=== PATIENT | male | born 1990 | race Two or more races ===

== ENCOUNTER 2024-12-15 09:32 | Emergency (ER) | payer MEDICAID, SELFPAY ==
--- NOTE | 2024-12-15 10:02 | XR_ITS ---
Examination: Shoulder,left, 3 views Technique: Shoulder AP internal rotation, AP external rotation, Y view shoulder, 3 views Exam date and time :December 15, 2024 1023 hours INDICATIONS: Left shoulder pain beginning 3 weeks ago. FINDINGS: No shoulder fracture or dislocation Mild narrowing glenohumeral joint IMPRESSION: Mild narrowing glenohumeral joint No calcific tendinitis
[2024-12-15 10:12] VITALS: BP 124/88; PULSE 66; RESP 16; TEMP 37.1; O2SAT 98; BMI 24.3
--- NOTE | 2024-12-15 11:14 | PD.EDADULT ---
ED General RME/HPI General Chief complaint: General Adult/Misc Complain Stated complaint: BUMP ON LEFT SHOULDER, PAINFUL, NECK PAIN Time Seen by Provider: 12/15/24 09:34 Arrival date/time: 12/15/24 09:32 34-year-old male presents emergency department today stating that he noticed he had a lump on his left shoulder patient reports no other bumps or lumps ongoing for the last couple of months patient reports no fever nausea vomiting or weight loss no other symptoms Limitations: no limitations Related Data Previous Rx's ?Medication ?Instructions ?Recorded ibuprofen 800 mg tablet 800 mg PO TID PRN pain #30 tabs 11/28/21 tramadol 50 mg tablet 50 mg PO Q8H PRN pain #10 tabs 03/02/22 cephalexin 500 mg capsule 500 mg PO Q12H #20 caps 06/09/22 sulfamethoxazole 800 1 tab PO BID #14 tabs 06/09/22 mg-trimethoprim 160 mg tablet (Bactrim DS) tramadol 37.5 mg-acetaminophen 325 1 tab PO TID PRN pain #15 tabs 06/11/22 mg tablet (Ultracet) Allergies Allergy/AdvReac Type Severity Reaction Status Date / Time hydrocortisone Allergy Severe Swelling Verified 12/15/24 09:33 of Lip/Tongue/Throat Review of Systems Review of Systems Systems Reviewed: All systems reviewed, normal except as documented Constitutional Constitutional: Reports system reviewed and no additional complaints, except as documented, Denies fever(s) and Denies headache(s) Eyes Eyes: Reports system reviewed and no additional complaints, except as documented and Denies blurry vision ENT Ears, Nose, Mouth, and Throat: Reports system reviewed and no additional complaints, except as documented, Denies headache(s), Denies nasal congestion and Denies nasal discharge Cardiovascular Cardiovascular: Reports system reviewed and no additional complaints, except as documented, Denies chest pain and Denies dyspnea Respiratory Respiratory: Reports system reviewed and no additional complaints, except as documented, Denies chest congestion, Denies cough and Denies dyspnea Gastrointestinal Gastrointestinal: Reports system reviewed and no additional complaints, except as documented and Denies abdominal pain Musculoskeletal Musculoskeletal: Reports system reviewed and no additional complaints, except as documented and Denies atrophy Integumentary/Breasts Skin/Breast: Reports system reviewed and no additional complaints, except as documented, Denies rash and Reports other (Lipoma left upper shoulder) Neurologic Neurologic: Reports system reviewed and no additional complaints, except as documented, Reports as per HPI and Denies headache(s) Past Medical History Past Medical History NEUROLOGIC: Negative Neurological Disorders CARDIAC: Negative Cardiac Disorders ED Exam General Limitations: Present no limitations General appearance: Present alert and in no apparent distress Head Head exam: Present atraumatic Eye Eye exam: Present normal appearance, PERRL and EOMI ENT ENT exam: Present normal exam, normal oropharynx and mucous membranes moist Neck Neck exam: Present normal inspection, full ROM and trachea midline Chest Chest inspection: Present normal inspection and symmetric chest wall rise Respiratory Respiratory exam: Present normal lung sounds bilaterally Cardiovascular Cardiovascular exam: Present regular rate, normal rhythm and normal heart sounds Abdominal Exam Abdominal exam: Present soft and normal bowel sounds Extremities Exam Extremities exam: Present normal inspection and full ROM Back Exam Back exam: Present normal inspection and full ROM Back 1 view image:  1. Lipoma Neurological Exam Neurological exam: Present alert, oriented X3 and CN II-XII intact Psychiatric Psychiatric exam: Present normal affect and normal mood Skin Skin exam: Present warm, dry, intact and normal color Course Quality Measures none Orders Category Date Time Status XR shoulder LT min 2V Stat Exams 12/15/24 10:02 Completed Vital Signs Vital signs: Vital Signs Temperature 98.8 F 12/15/24 10:12 Pulse Rate 66 12/15/24 10:12 Respiratory Rate 16 12/15/24 10:12 Blood Pressure 124/88 H 12/15/24 10:12 Pulse Oximetry (%) 98 12/15/24 10:12 Oxygen Delivery Method Room Air 12/15/24 10:12 O2 saturation 98% room air within normal limits MDM Patient data External records reviewed:: [facility] [place] previous records Clinical information provided by:: patient Social determinants that could affect healthcare access:: none Patient has the following chronic illnesses:: None How is presenting disease/condition affected by chronic disease/condition?: no chronic disease Evaluation data The following diagnostics were reviewed and interpreted by me:: other (specify) (N/A) Lab and/or radiology exams considered but not ordered:: Consider not ordered Interpretation Summary: N/A Medications Medications considered but not ordered:: No meds Medication administrations:: No meds Consultations Consultation(s) initiated? (list below): No Diagnosis Differential Diagnosis ED Complaint MDM: Lipoma, mass, shoulder pain Most likely diagnosis given after review of the tests above:: Lipoma left shoulder Admission Indicated Admission indicated?: not indicated Explain why admission is indicated or not indicated:: No criteria Admission Request Was there a request for admission?: No Disposition Plan Disposition Plan: Discharge Discharge Attestation Discharge Attestation: The patient and all family members were given an opportunity to ask questions and understood the discharge instructions. Discharge instructions specifically effects, indications for sooner follow up or return to the emergency department, and the expected course of current diagnosis. Patient condition: Stable Medical Decision Making MDM Narrative MDM Narrative: 34-year-old male presents emergency department today stating that he noticed he had a lump on his left shoulder patient reports no other bumps or lumps ongoing for the last couple of months patient reports no fever nausea vomiting or weight loss no other symptoms On exam patient appears have lipoma left shoulder/suprascapular region X-ray of the left shoulder obtained no acute emergent findings noted Explained the patient he should follow-up with his PCP and or get a referral to general surgeon for worsening symptoms return immediately Differential Diagnosis Differential Diagnosis: Lipoma, mass, shoulder pain Medical Records Medical records reviewed: Yes I reviewed the patient's medical records. Radiology Data Radiology results reviewed: Yes I reviewed the patient's radiology results. Discharge Plan Plan Patient Disposition: HOME (Self Care) Disposition Comment: Stable Prescriptions/Referrals Prescriptions/Med Rec: No Action ibuprofen 800 mg tablet 800 mg PO TID PRN (Reason: pain) Qty: 30 0RF tramadol 50 mg tablet 50 mg PO Q8H PRN (Reason: pain) Qty: 10 0RF sulfamethoxazole-trimethoprim [Bactrim DS] 800-160 mg tablet 1 tab PO BID Qty: 14 0RF cephalexin 500 mg capsule 500 mg PO Q12H Qty: 20 0RF tramadol-acetaminophen [Ultracet] 37.5-325 mg tablet 1 tab PO TID PRN (Reason: pain) Qty: 15 0RF Problem List Clinical Impression: Lipoma of left shoulder Patient/Caregiver Discharge Instructions Education Materials: ED Lipoma Additional Instructions: Please follow up with your primary care doctor in the next 24-48hrs for any worsening symptoms return here immediately Please request referral to surgeon Print Language: Liberian Stand Alone Forms: Samantha Award Info., Patient Portal Info Letter PA/MEDICAL STAFF PHYSICIAN Supervising Physician PA/LEELA Supervising Physician: Dr. Zimmerman
--- NOTE | 2024-12-15 12:01 | PC.NURSE ---
NO ANSWER WHEN CALLED FROM [facility]
== END 2024-12-15 12:27 | disposition home or self-care (01) ==
LOC: SERX 12:36
PROVIDERS: Emergency Provider Emergency Medicine; PCP Family Medicine
DX: D17.22 Benign lipomatous neoplasm of skin and subcutaneous tissue of left arm (principal)
CPT/HCPCS: 73030; 99283

== ENCOUNTER 2025-07-09 06:55 | Day surgery (SDC) | payer MEDICAID, SELFPAY ==
[2025-07-08 08:55] VITALS: BMI 25.0
[2025-07-08 10:55] LABS: Basophils # (Auto) 0.1 Thou/mm3 (0.0-0.2); Basophils % (Auto) 1 % (0-2.5); Eosinophils # (Auto) 0.1 Thou/mm3 (0.0-0.5); Eosinophils % (Auto) 1 % (0-10); Hematocrit 44.3 % (41.0-53.0); Hemoglobin 15.4 g/dL (13.5-16.0); Immature Granulocytes Auto 0.02 Thou/mm3 (0.00-0.00); Lymphocytes # (Auto) 1.9 Thou/mm3 (1.0-4.8); Lymphocytes % (Auto) 30 % (10-50); Mean Corpuscular HGB Conc 34.8 g/dl (31.0-37.0); Mean Corpuscular Hemoglobin 29.7 pg (25.0-35.0); Mean Corpuscular Volume 86 fL (80-100); Monocytes # (Auto) 0.4 Thou/mm3 (0.0-0.8); Monocytes % (Auto) 6 % (0-12); Neutrophils # (Auto) 3.9 Thou/mm3 (1.8-7.7); Neutrophils % (Auto) 62 % (37-80); Nucleated Red Blood Cell # 0.00 Thou/mm3 (0.00-0.00); Nucleated Red Blood Cell % 0 /100 WBC (0); Platelet Count 291 Thou/mm3 (140-440); RDW Standard Deviation 39.3 fL (35.1-43.9); Red Blood Count 5.18 Miln/mm3 (4.50-5.90); White Blood Count 6.3 Thou/mm3 (3.8-10.6)
[2025-07-08 11:04] LABS: Alanine Aminotransferase 22 U/L (10-49); Albumin, Serum 4.5 gm/dL (3.5-5.0); Albumin/Globulin Ratio 1.8 (1.2-2.2); Alkaline Phosphatase 47 U/L (46-116); Anion Gap 11 (7-16); Aspartate Amino Transferase 19 U/L (0-34); BUN/Creatinine Ratio 10 Ratio (12-20); Bilirubin,Total 1.1 mg/dL (0.3-1.2); Blood Urea Nitrogen 11 mg/dL (9-23); Calcium 10.1 mg/dL (8.3-10.6); Calcium (Corrected) 10.1 mg/dL (8.5-10.1); Carbon Dioxide 24.1 mMol/L (20.0-31.0); Chloride 107 mMol/L (98-107); Creatinine (Component) 1.1 mg/dL (0.6-1.3); Estimated Creatinine Clearance 91.9 mL/min (>60); Globulin 2.5 gm/dL (2.3-3.5); Glucose 112 mg/dL (74-106); Osmolality,Calculated 283 (275-295); Potassium 3.8 mMol/L (3.4-5.1); Sodium 142 mMol/L (136-145); Total Protein 7.0 gm/dL (5.7-8.2); eGFR > 60 See Note
[2025-07-08 11:17] LABS: INR 1.0 (0.9-1.3); Partial Thromboplastin Time 26.5 Seconds (22.0-36.0); Prothrombin Time 10.5 Seconds (9.0-12.2)
[2025-07-09] VITALS (7 sets, daily range): BP systolic 101–134; BP diastolic 60–92; PULSE 61–79; RESP 14–20; TEMP 36.7–37.1; O2SAT 96–99; BMI 25.0
--- NOTE | 2025-07-09 08:21 | SUR.PREOP ---
Patient expressed gratitude for prayer before their procedure.
--- NOTE | 2025-07-09 09:50 | SUR.PHASEII ---
[id number] Patient arrived to recovery resting comfortably in [facility], awake and alert, breathing unlabored, vital signs stable, denies pain, dressing intact; sutures, gauze, medipore tape, no bleeding noted, report received from Richard SCHROEDER and Marsha CHRIS
--- NOTE | 2025-07-09 09:54 | PD.SUROPNT ---
Date of Procedure 07/09/25 Pre Op Diagnosis Soft tissue mass back of the left shoulder Post Op Diagnosis Same Procedure Excision of the soft tissue mass back of the left shoulder Findings Patient was found to have a lobulated lipoma in the subcutaneous tissue which is firmly adherent to the fascia and other structures requiring dissection. Procedure Description Out the patient was brought to the operating room he was kept on right lateral position and the back of the left shoulder was washed with ChloraPrep solution and draped in a sterile manner. Timeout was performed. The mass was located right over the scapula and the shoulder muscles. Transverse incision was made parallel to the skin crease and using Mariusz retractors I dissected out the lobulated lipoma. This was firmly adherent to the underlying structures and required sharp dissection. Bleeding points were controlled with cautery. The subcu tissues was closed with 3-0 chromic on the skin by 4-0 Monocryl after injecting local anesthesia with half percent Marcaine. Dressing was applied with Adaptic and 4 x 4 gauze and patient tolerated procedure well. Anesthesia MAC Pathology / specimen Other (The excised mass) Estimated Blood Loss 10 Surgeon Mel Gonzalez MD Surgical Staff Operation Date: 07/09/25 09:45 Case Staff LITHOGRAPHIC STRIPPER: Pernell Jean RNrate clerk passenger: Elisabeth Valderrama
--- NOTE | 2025-07-09 10:41 | SUR.PHASEII ---
patient meets discharge criteria from recovery, awake and alert, breathing unlabored, vital signs stable, denies pain, dressing intact; no bleeding noted, eating and drinking; tolerating well, denies nausea, patient disconnected from the vital signs monitor and dressed in his clohting awaiting his ride
--- NOTE | 2025-07-09 11:18 | SUR.PHASEII ---
1110 patient ride arrived, discharge instructions given to patient and his , signed discharge instructions. 1118 Patient given all his belongings prior to discharge, transported via wheelchair and left in a private vehicle.
== END 2025-07-09 11:18 | disposition home or self-care (01) ==
PROVIDERS: PCP Family Medicine; Referring Provider Surgery; Visit Provider Surgery
PROC: (CPT 21931; principal; 2025-07-09 09:30)
DX: D17.1 Benign lipomatous neoplasm of skin and subcutaneous tissue of trunk (principal); E66.09 Other obesity due to excess calories; M75.52 Bursitis of left shoulder
CPT/HCPCS: 21931; 36415; 80053; 85025; 85610; 85730; A4217; A4649; J2250; J2704; J3490

== ENCOUNTER 2025-09-23 15:06 | Emergency (ER) | payer MEDICAID, SELFPAY ==
[2025-09-23 15:07] VITALS: BMI 25.8
[2025-09-23 15:35] VITALS: BP 117/86; PULSE 70; RESP 20; TEMP 37; O2SAT 96
--- NOTE | 2025-09-23 15:37 | XR_ITS ---
Examination: CT lumbar spine, without contrast. 2-D sagittal reconstructions. 2-D coronal reconstructions. 3-D reconstructions. Date and time of exam: September 23, 2025, 1816 hours INDICATIONS: Bilateral low back pain onset today. CTDI: vol (mGy): 21.5 DLP: (mGycm): 707 Technique: Multiple 1.25 mm axial sections of the lumbar spine without intravenous contrast have been obtained. 2-D sagittal and coronal reconstructions have been obtained. 3-D reconstructions have been obtained. Low dose protocols were performed. One or more of the following dose reduction techniques were used; automated exposure control, adjustment of the mA and/or KV according to patient size, use of iterative reconstruction technique. Findings: Normal bone density. Satisfactory alignment lumbar vertebral bodies. No lumbar fracture or significant lumbar disc narrowing. No spondylolisthesis Lumbar pedicles, laminae, transverse and posterior spinous processes intact L5-S1 2 mm central left paracentral disc bulge contiguous with the left S1 nerve root L4-L5 2 mm right paracentral disc bulge indenting ventral margin thecal sac More cephalad levels unremarkable IMPRESSION: No lumbar fractures L5-S1 2 mm central left paracentral disc bulge contiguous with the left S1 nerve root L4-L5 2 mm right paracentral disc bulge mildly indenting the ventral margin thecal sac
--- NOTE | 2025-09-23 15:38 | PD.EDRME ---
Rapid Medical Screening Exam RME Arrival date/time: 09/23/25 15:06 35-year-old male presents to the Emergency Department for complaints of lower back pain Chief Complaint: Back Pain/Injury Vital signs: Vital Signs Temperature 98.6 F 09/23/25 15:35 Pulse Rate 70 09/23/25 15:35 Respiratory Rate 20 09/23/25 15:35 Blood Pressure 117/86 H 09/23/25 15:35 Pulse Oximetry (%) 96 09/23/25 15:35 Oxygen Delivery Method Room Air 09/23/25 15:35 Vital signs reviewed by provider: Yes Exam: On exam patient has tenderness of lower back patient reports pain worse with movement Clinical Impression: Imaging ordered pain medication ordered
[2025-09-23] MEDS: KETOROLAC INJ 30 MG/ML VIAL IM (16:43)
[2025-09-23] MEDS: DIAZEPAM 5 MG TABLET 10 MG PO (16:43)
--- NOTE | 2025-09-23 20:05 | PD.EDBACK ---
ED Back Injury Pain RME/HPI General Chief Complaint: Back Pain/Injury Stated Complaint: BACK PAIN TODAY, DENIES INJURY Time Seen by Provider: 09/23/25 17:40 Arrival date/time: 09/23/25 15:06 35-year-old male patient was brought in by family for evaluation regarding sudden onset of low back pain. He had a history of low back pain in the past, today patient woke up with pain to the lumbar area, described as sharp pain, worse with positional change. Patient is ambulatory. Patient denies any bladder incontinence. Denies any bowel incontinence. Patient denies any weakness to bilateral lower extremity. Patient is ambulatory. Denies any dysuria denies any fever. No medication was taken prior to ER visit. RME / HPI RME / HPI Narrative: 09/23/25 15:06 35-year-old male presents to the Emergency Department for complaints of lower back pain Exam: On exam patient has tenderness of lower back patient reports pain worse with movement Impression: Imaging ordered pain medication ordered Related Data Previous Rx's ?Medication ?Instructions ?Recorded ketorolac 10 mg tablet 10 mg PO TID PRN pain #20 tabs 09/23/25 methocarbamol 500 mg tablet 500 mg PO Q8H #20 tabs 09/23/25 Allergies Allergy/AdvReac Type Severity Reaction Status Date / Time hydrocortisone Allergy Severe Swelling Verified 09/23/25 15:09 of Lip/Tongue/Throat Review of Systems Review of Systems Narrative Review of Systems: Review of system reviewed and within normal limits except mentioned in HPI ED Exam Narrative Physical exam: VITAL SIGNS: Reviewed. GENERAL APPEARANCE: Alert and interactive, follows commands, no acute distress, HEAD AND FACE: Non-traumatic. ENT: PERRL, pink conjunctivitis, eyelid no trauma, Mucous membrane moist. NECK: Supple, nontender, no nuchal rigidity. CHEST: No tenderness, no crepitus, no paradoxical movement, no retractions. LUNGS: Clear, well ventilated, symmetric, no rales, no wheezing, no ronchi, no stridor, good breath sounds bilaterally. HEART: Regular rate, regular rhythm, no murmur, no gallops. ABDOMEN: Soft, positive bowel sounds, nondistended, no guarding, nontender, no rebound, no masses, RECTAL: Deferred. GENITAL: Deferred. NEUROLOGICAL: Gross motor function intact sensory function intact, Appropriate for age. MUSCULOSKELETAL: low back tenderness,, full range of motion. EXTREMITIES: Nontender, full range of motion. SKIN: Color pink, dry, no rash, no lacerations, no abrasions, no contusions. LYMPHATICS: Deferred. Course Quality Measures none Orders Category Date Time Status CT lumbar spine wo con Stat Exams 09/23/25 15:37 Completed Diazepam [Valium] Med 09/23/25 15:37 Discontinued 10 mg PO X1 ONE HYDROcodone*/APAP 5/325 [[place] 5/325] Med 09/23/25 20:02 Once 1 tab PO X1 ONE Ketorolac Inj [Toradol Inj] Med 09/23/25 15:37 Discontinued 30 mg IM X1 ONE Vital Signs Vital signs: Vital Signs Temperature 98.6 F 09/23/25 15:35 Pulse Rate 70 09/23/25 15:35 Respiratory Rate 20 09/23/25 15:35 Blood Pressure 117/86 H 09/23/25 15:35 Pulse Oximetry (%) 96 09/23/25 15:35 Oxygen Delivery Method Room Air 09/23/25 15:35 Back Pain / Injury MDM Narrative MDM Narrative:: 35-year-old male patient was brought in by family for evaluation regarding sudden onset of low back pain. He had a history of low back pain in the past, today patient woke up with pain to the lumbar area, described as sharp pain, worse with positional change. Patient is ambulatory. Patient denies any bladder incontinence. Denies any bowel incontinence. Patient denies any weakness to bilateral lower extremity. Patient is ambulatory. Denies any dysuria denies any fever. No medication was taken prior to ER visit. CT scan of the lumbar spine showed No lumbar fractures L5-S1 2 mm central left paracentral disc bulge contiguous with the left S1 nerve root L4-L5 2 mm right paracentral disc bulge mildly indenting the ventral margin thecal sac Patient received Valium, Toradol, and [place] with significant improvement of pain. Further imaging is not needed patient is not having any cauda equina syndrome. Stable for discharge home. Patient data External records reviewed:: None Clinical information provided by:: patient Social determinants that could affect healthcare access:: none Patient has the following chronic illnesses:: None How is presenting disease/condition affected by chronic disease/condition?: no chronic disease Evaluation data The following diagnostics were reviewed and interpreted by me:: radiology exam(s) Lab and/or radiology exams considered but not ordered:: None Interpretation Summary: See results MDM Medications / Prescriptions Medications or Prescriptions considered but not ordered:: None Medication administrations:: Medication Administration History Hydrocodone Bitart/Acetaminophen (Hydrocodone/Apap 5/325 Tablet) 1 tab PO X1 ONE Stop: 09/23/25 20:03 Discontinued Medications Diazepam (Diazepam 5 Mg Tablet) 10 mg PO X1 ONE Stop: 09/23/25 15:38 Last Admin: 09/23/25 16:43 Dose: 10 mg Documented By: Ketorolac Tromethamine (Ketorolac Inj 30 Mg/Ml Vial) 30 mg IM X1 ONE Stop: 09/23/25 15:38 Last Admin: 09/23/25 16:43 Dose: 30 mg Documented By: Toradol, Valium, and [place] Consultations Consultation(s) initiated? (list below): No Diagnosis Differential diagnosis back pain/injury: lumbar radiculopathy, sciatica and other ( Acute low back pain) Most likely diagnosis given after review of the tests above:: Acute low back pain Admission Indicated Admission indicated?: not indicated Admission Request Was there a request for admission?: No Disposition Plan Disposition Plan: Discharge Discharge Attestation Discharge Attestation: The patient was given an opportunity to ask questions and understood the discharge instructions. Discharge instructions specifically effects, indications for sooner follow up or return to the emergency department, and the expected course of current diagnosis. Patient condition: Stable Discharge Plan Plan Patient Disposition: HOME (Self Care) Discharge Disposition comment: stable Prescriptions/Referrals Prescriptions/Med Rec: New ketorolac 10 mg tablet 10 mg PO TID PRN (Reason: pain) Qty: 20 0RF methocarbamol 500 mg tablet 500 mg PO Q8H Qty: 20 0RF Referrals: No Primary/Family,Physician [Primary Care Provider] - In 1 week Problem List Clinical Impression: Low back pain Patient/Caregiver Discharge Instructions Discharge Activity: activity as tolerated Education Materials: Back Safety Bed Additional Instructions: Thank you for the opportunity for serving you today. You are stable for discharged . You are advised to: Follow-up with your PCP in 1 to 2 days Return to ED for worsening of symptoms Increase oral fluids Take medication as prescribed Print Language: Hebrew Stand Alone Forms: Samantha Award Info., Patient Portal Info Letter
[2025-09-23] MEDS: HYDROcodone/APAP 5/325 TABLET 1 TAB PO (20:10)
== END 2025-09-23 20:15 | disposition home or self-care (01) ==
PROVIDERS: Emergency Provider Nurse Practitioner Primary Care
DX: M54.50 Low back pain, unspecified (principal)
CPT/HCPCS: 72131; 96372; 99283; J1885; A9270